=== PATIENT | male | born 1960 | race Caucasian/White ===

== ENCOUNTER 2020-12-31 05:47 | Observation (INO) ==
[2020-12-31] MEDS ORDERED: Buffered Lidocaine 1% SYRIN 1 ml INTRADERM ONE (06:00)
[2020-12-31] MEDS ORDERED: Lactated Ringers 1000 ml BAG 1,000 ML IV SCH (06:00)
[2020-12-31] MEDS ORDERED: cefTRIAXone 2 GM ADDV.VIAL ONE (06:04)
[2020-12-31] MEDS ORDERED: Gentamicin ADULT 160 MG in NS 0.9% 100 ml BAG 100 ML IVPB ONE (06:30)
[2020-12-31] MEDS ORDERED: Midazolam 2 mg/2 ml VIAL 1 mg/ml 2 ml VIAL (2 mg) ONE (07:17)
[2020-12-31] MEDS ORDERED: Morphine PF AMP (0.5MG/ML) 5 MG/10 ML AMP ONE (07:18)
[2020-12-31] MEDS ORDERED: Lidocaine 2% PF 5 ML VIAL ONE (11:18)
[2020-12-31] MEDS ORDERED: Propofol 10 MG/ML 20 ML BTL ONE (11:18)
[2020-12-31] MEDS ORDERED: Ondansetron 4 mg VIAL 2 MG/ML 2 ml VIAL IV PRN (11:30)
[2020-12-31] MEDS ORDERED: Naloxone 0.4 mg VIAL 0.4 mg/ml 1 ml VIAL IV PRN (11:30)
[2020-12-31] MEDS ORDERED: Furosemide 20 mg/2 ml IV VIAL ONE (11:47)
[2020-12-31] MEDS ORDERED: EPHEDrine (Pressors) 50 MG/ML VIAL ONE (11:49)
[2020-12-31] MEDS ORDERED: Lidocaine 2% PF 10 ML AMP ONE (12:04)
[2020-12-31] MEDS ORDERED: oxyCODONE/Acetamin 5/325 mg TAB PO PRN (15:06)
[2020-12-31] MEDS: LACTATED RINGERS 1000 ML BAG IV SCH ×2 (15:20→21:39)
[2020-12-31 16:55] LABS: Calcium 8.2 mg/dL (8.6-10.3); EGFR African American 81.8 (>60); EGFR Non-African American 67.6 (>60); Potassium 3.8 mmol/L (3.5-5.0)
[2021-01-01] MEDS: LACTATED RINGERS 1000 ML BAG IV SCH (04:19)
[2021-01-01 04:57] LABS: Calcium 8.3 mg/dL (8.6-10.3); EGFR African American 82.6 (>60); EGFR Non-African American 68.3 (>60); Potassium 3.9 mmol/L (3.5-5.0)
[2021-01-01 07:46] VITALS: BP 129/83
== END 2021-01-01 09:45 | disposition home or self-care (01) ==
LOC: SDS 05:47 → SSU 05:47
PROVIDERS: ADMIT Urology; ATTEND Urology